=== PATIENT | female | born 1940 | race Caucasian/White ===

== ENCOUNTER 2017-11-17 11:08 | Outpatient (CLI) | payer MEDICARE, BC | END 2017-11-17 11:09 | disposition home or self-care (01) | LOC: BICRAD 11:08 | PROVIDERS: ATTEND Podiatrist | DX: M76.61 Achilles tendinitis, right leg (principal) ==

== ENCOUNTER 2019-01-16 11:57 | Outpatient (CLI) | payer MEDICARE, BC ==
--- NOTE | 2019-01-18 19:50 | EKG ---
Test Reason : Blood Pressure : / mmHG Vent. Rate : 069 BPM Atrial Rate : 069 BPM P-R Int : 160 ms QRS Dur : 088 ms QT Int : 376 ms P-R-T Axes : 038 062 058 degrees QTc Int : 402 ms Normal sinus rhythm Cannot rule out Anterior infarct , age undetermined Abnormal ECG When compared with ECG of 02-SEP-2012 07:30, No significant change was found Confirmed by CHELA MEDINA, SJoseline ([id number]) on 01/18/2019 7:49:56 PM Referred By: ANSHUL Confirmed By:DR. Phil YORK MD
== END 2019-01-16 11:58 | disposition home or self-care (01) ==
LOC: LABBT 11:57
PROVIDERS: ATTEND Neurological Surgery
DX: Z01.818 Encounter for other preprocedural examination (principal); M54.16 Radiculopathy, lumbar region; M43.16 Spondylolisthesis, lumbar region
CPT/HCPCS: 93005; 93010

== ENCOUNTER 2023-09-29 11:14 | Emergency (ER) | payer MEDICARE ==
[2023-09-29] MEDS ORDERED: Morphine 4 MG/ML VIAL ONE ×2 (12:03→12:28)
[2023-09-29] MEDS ORDERED: Ondansetron PF 4 MG/2 ML Vial ONE (12:03)
[2023-09-29] MEDS ORDERED: Etomidate 40 MG (20 mL) VIAL ONE (13:17)
== END 2023-09-29 15:11 | disposition home or self-care (01) ==
LOC: ERS 11:14
DX: S73.004A Unspecified dislocation of right hip, initial encounter (principal); I10 Essential (primary) hypertension; E78.00 Pure hypercholesterolemia, unspecified; Z79.899 Other long term (current) drug therapy; W18.30XA Fall on same level, unspecified, initial encounter
CPT/HCPCS: 27250; 73501; 73502; 96374; 96375; 99152; 99283; J2270; J2405